=== PATIENT | male | born 1945 | race Caucasian/White ===

== ENCOUNTER 2016-11-28 12:25 | Inpatient (IN) ==
[2016-11-28] MEDS ORDERED: LACTATED RINGERS 1,000 ML IV ONE (13:08)
--- NOTE | 2016-11-28 13:35 | XRay Report ---
CLINICAL INFORMATION: Altered mental status TECHNIQUE: AP portable semierect chest x-ray COMPARISON: 11/14/2016 FINDINGS: No change in right-sided PICC line or left transvenous pacemaker lead Cardiomegaly, unchanged. No evidence for congestive heart failure. No pulmonary congestion. No focal pulmonary parenchymal infiltrate. No evidence for pneumonia. IMPRESSION: No acute abnormality. No interval change since 11/14/2016 Interpreted and Authenticated by: Ab Mcpherson 11/28/16
[2016-11-28 13:39] LABS: Basophils # (Auto) 0 K/mcL (0.0-0.3); Basophils % (Auto) 0.5 % (0.0-2.0); Eosinophils # (Auto) 0.1 K/mcL (0.0-0.7); Eosinophils % (Auto) 1.5 % (0.0-7.0); Granulocytes % (Auto) 74.7 % (38.0-78.0); Lymphocytes # (Auto) 0.9 K/mcL (1.5-4.8); Lymphocytes % (Auto) 8.6 % (15.5-49.0); Mean Cell Volume 97.1 fL (80.0-100.0); Mean Corpuscular HGB Conc 33.3 g/dL (31.0-36.0); Mean Corpuscular Hemoglobin 32.3 pg (26.0-34.0); Monocytes # (Auto) 1.5 K/mcL (0.1-0.9); Monocytes % (Auto) 14.7 % (1.0-12.0); Platelet Count 247 K/mcL (140-440); RBC 3.48 M/mcL (4.50-5.90); Red Cell Distribution Width 14.5 % (11.5-14.5)
[2016-11-28 14:22] LABS: ALT/SGPT 6 U/l (0-40); Albumin 3.3 gm/dL (3.2-5.2); Albumin/Globulin Ratio 0.7 (1.0-2.3); Alkaline Phosphatase 105 U/L (39-117); Blood Urea Nitrogen 36 mg/dl (8-23); Creatine Kinase 15 IU/L (24-195)
[2016-11-28] MEDS ORDERED: cefTRIAXone 1 GM in DEXTROSE 5% IN WATER 50 ML IV ONE (15:07)
[2016-11-28] MEDS ORDERED: VANCOMYCIN 1,000 MG in 0.9 % SODIUM CHLORIDE 250 ML IV ONE ×2 (15:16→16:30)
--- NOTE | 2016-11-28 15:18 | Emergency Department Note ---
General Adult HPI - General Chief complaint: Altered Mental Status Stated complaint: felt "fuzzy" at wound care Time Seen by Provider: 11/28/16 13:08 Source: patient, EMS Mode of arrival: EMS Limitations: no limitations - History of Present Illness HPI Narrative: 71-year-old male who lives at [facility] in [place] came in for diabetic wound care on bilateral feet. While at wound care he was found to have low blood pressure. He is currently being treated with Keflex for UTI for the last several days additionally he had a Marquis catheter placed because he has not been able to urinate well for the last 2 days. He denies fever nausea vomiting diarrhea. His reports some confusion although he is lucid right now and able to give me a reasonable history. - Related Data Home Medications Medication Instructions Recorded Confirmed Acetaminophen [Shake That Ache] 500 mg PO Q6HP PRN 11/14/16 11/28/16 Apixaban [Eliquis] 2.5 mg PO BID 11/14/16 11/28/16 Carvedilol [Coreg] 6.25 mg PO BID 11/14/16 11/28/16 Clopidogrel Bisulfate [Plavix] 75 mg PO DAILY 11/14/16 11/28/16 DULoxetine [Cymbalta] 60 mg PO DAILY 11/14/16 11/28/16 Gabapentin [Neurontin] 100 mg PO TID 11/14/16 11/28/16 Ipratropium/Albuterol [Duoneb] 3 ml NEB ONCE 11/14/16 11/28/16 Levothyroxine [Synthroid] 112 mcg PO DAILY 11/14/16 11/28/16 Lisinopril [Zestril] 5 mg PO DAILY 11/14/16 11/28/16 Metolazone 10 mg PO DAILY 11/14/16 11/28/16 Na Phos,M-B/Na Phos,Di-Ba [Fleet 230 ml RC PRN PRN 11/14/16 11/28/16 Enema Extra] Nitroglycerin 0.3 mg SL PRN PRN 11/14/16 11/28/16 traZODone HCL [Trazodone HCl] 50 mg PO QHS 11/14/16 11/28/16 Allergies Allergy/AdvReac Type Severity Reaction Status Date / Time No Known Drug Allergies Allergy Verified 11/14/16 07:39 Review of Systems All systems ED: reviewed and negative except as stated. Past Medical History - Past Medical History Attestation: Yes: The following information was validated with the patient. Medical history: Reports: atrial fibrillation, CHF, coronary artery disease, diabetes, hypertension, myocardial infarction, thyroid disease, other ( Bilateral foot wounds) Surgical history ED: Reports: hip replacement, knee replacement, orthopedic, other (Carpal tunnel), pacemaker/AICD, vascular surgery - Social History smoking status: Never smoker Physical Exam Normocephalic atraumatic. Conjunctive are clear sclerae nonicteric. No nasal discharge or congestion. Oropharynx is pink and moist. Neck is supple without lymphadenopathy thyromegaly or carotid bruit. Heart is irregularly irregular with congruent radial pulse was 2. Lungs are clear to auscultation bilaterally without wheezes rales rhonchi or respiratory distress. Abdomen soft nontender nondistended. No peritoneal signs or guarding. Bilateral feet are bandagedI did not unwrap them because he just come from wound care and had been examined by the wound care doctor. I reviewed his records from wound care which enumerated 6 wounds-also directly discussed the patient with Dr. Heart wound care surgeon. He is alert awake oriented and able to give me a reasonable history. No dysarthria or ataxia. Marquis in place which shows dark yellow to brown urine - General Limitations: no limitations Course Vital Signs Temperature 96.6 F L 11/28/16 12:25 Pulse Rate 66 11/28/16 12:25 Respiratory Rate 16 11/28/16 12:25 Blood Pressure 124/56 11/28/16 12:25 Pulse Oximetry (%) 100 11/28/16 12:25 Temperature 98.3 F 11/28/16 19:41 Pulse Rate 73 11/28/16 19:41 Respiratory Rate 18 11/28/16 19:41 Blood Pressure 120/42 11/28/16 19:41 Pulse Oximetry (%) 97 11/28/16 19:41 Medical Decision Making - Lab Data Lab results reviewed: Yes I reviewed the patient's lab results. Result diagrams: 11/28/16 13:05 11/28/16 13:05 Lab Results 11/28/16 11/28/16 11/28/16 Range/Units 13:05 13:05 13:05 WBC 10.1 (4.5-11.0) K/mcL RBC 3.48 L (4.50-5.90) M/mcL Hgb 11.3 L (13.5-16.5) g/dL Hct 33.8 L (41.0-55.0) % MCV 97.1 (80.0-100.0) fL MCH 32.3 (26.0-34.0) pg MCHC 33.3 (31.0-36.0) g/dL RDW 14.5 (11.5-14.5) % Plt Count 247 (140-440) K/mcL MPV 9.3 (7.4-10.4) fL Gran % 74.7 (38.0-78.0) % Lymph % (Auto) 8.6 L (15.5-49.0) % Teton % (Auto) 14.7 H (1.0-12.0) % Eos % (Auto) 1.5 (0.0-7.0) % Baso % (Auto) 0.5 (0.0-2.0) % Gran # 7.5 (1.8-8.0) K/mcL Lymph # 0.9 L (1.5-4.8) K/mcL Teton # 1.5 H (0.1-0.9) K/mcL Eos # 0.1 (0.0-0.7) K/mcL Baso # 0 (0.0-0.3) K/mcL ESR 112 H (0-15) mm/hr VBG Lactic Acid (0.5-2.2) mmol/L Sodium 135 (133-145) mmol/L Potassium 4.0 (3.3-5.1) mmol/L Chloride 98 (96-108) mmol/L Carbon Dioxide 24 (22-30) mmol/L Anion Gap 13.0 (8-16) BUN 36 H (8-23) mg/dl Creatinine 1.7 H (0.7-1.2) mg/dl GFR Calculation 39 Glucose 119 H (70-105) mg/dL Calcium 9.2 (8.6-10.4) mg/dl Total Bilirubin 0.8 (0.0-1.0) mg/dL AST 11 (0-37) U/l ALT 6 (0-40) U/l Alkaline Phosphatase 105 (39-117) U/L Total Creatine Kinase 15 L (24-195) IU/L Troponin T (0-0.03) ng/ml C-Reactive Protein (0.0-0.8) mg/dl Total Protein 7.9 (5.9-8.4) gm/dL Albumin 3.3 (3.2-5.2) gm/dL Globulin 4.6 H (2.2-3.7) gm/dL Albumin/Globulin Ratio 0.7 L (1.0-2.3) 11/28/16 11/28/16 11/28/16 Range/Units 13:05 13:13 13:13 WBC (4.5-11.0) K/mcL RBC (4.50-5.90) M/mcL Hgb (13.5-16.5) g/dL Hct (41.0-55.0) % MCV (80.0-100.0) fL MCH (26.0-34.0) pg MCHC (31.0-36.0) g/dL RDW (11.5-14.5) % Plt Count (140-440) K/mcL MPV (7.4-10.4) fL Gran % (38.0-78.0) % Lymph % (Auto) (15.5-49.0) % Teton % (Auto) (1.0-12.0) % Eos % (Auto) (0.0-7.0) % Baso % (Auto) (0.0-2.0) % Gran # (1.8-8.0) K/mcL Lymph # (1.5-4.8) K/mcL Teton # (0.1-0.9) K/mcL Eos # (0.0-0.7) K/mcL Baso # (0.0-0.3) K/mcL ESR (0-15) mm/hr VBG Lactic Acid 1.0 (0.5-2.2) mmol/L Sodium (133-145) mmol/L Potassium (3.3-5.1) mmol/L Chloride (96-108) mmol/L Carbon Dioxide (22-30) mmol/L Anion Gap (8-16) BUN (8-23) mg/dl Creatinine (0.7-1.2) mg/dl GFR Calculation Glucose (70-105) mg/dL Calcium (8.6-10.4) mg/dl Total Bilirubin (0.0-1.0) mg/dL AST (0-37) U/l ALT (0-40) U/l Alkaline Phosphatase (39-117) U/L Total Creatine Kinase (24-195) IU/L Troponin T 0.03 (0-0.03) ng/ml C-Reactive Protein 5.9 H (0.0-0.8) mg/dl Total Protein (5.9-8.4) gm/dL Albumin (3.2-5.2) gm/dL Globulin (2.2-3.7) gm/dL Albumin/Globulin Ratio (1.0-2.3) Urinalysis shows a large amount of blood and moderate leukocytes and specific gravity 1.015 - Radiology Data Radiology results reviewed: Yes I reviewed the patient's radiology results. Chest x-ray is reviewed and without acute cardiopulmonary pathology Renal ultrasound showed some mild cortical atrophy but otherwise without acute abnormality - EKG Data EKG #1 EKG attestation: Yes I reviewed and interpreted this EKG. EKG results narrative: EKG shows a rate of 53 in atrial fibrillation but no sign of ischemia Disposition Clinical Impression: Dehydration, Bradycardia UTI (urinary tract infection) Qualifiers: Urinary tract infection type: acute cystitis Hematuria presence: with hematuria Qualified Code(s): N30.01 - Acute cystitis with hematuria Acute renal failure Qualifiers: Acute renal failure type: unspecified Qualified Code(s): N17.9 - Acute kidney failure, unspecified Wound, open, foot Qualifiers: Encounter type: subsequent encounter Laterality: unspecified laterality Qualified Code(s): S91.309D - Unspecified open wound, unspecified foot, subsequent encounter Summary: Treated with IV fluids and Rocephin for UTI, after cultures done. Blood pressure improved but he remained bradycardic Discussed case with Dr. Lunsford the hospitalist who agreed to accept the patient for admission. Added vancomycin Disposition: [facility] Condition: Fair
[2016-11-28] MEDS ORDERED: ONDANSETRON 4 MG/2 ML VIAL IV PRN (16:33)
[2016-11-28] MEDS ORDERED: POTASSIUM CHLORIDE 20 MEQ PACKET PO PRN (16:33)
[2016-11-28] MEDS ORDERED: ACETAMINOPHEN 325 MG TABLET PO PRN (16:33)
[2016-11-28] MEDS ORDERED: ACETAMINOPHEN 1,000 MG/100 ML BOTTLE IV PRN (16:33)
[2016-11-28] MEDS ORDERED: VANCOMYCIN PER PHARMACY IV ONE (16:33)
[2016-11-28 16:57] LABS: C-Reactive Protein 5.9 mg/dl (0.0-0.8)
[2016-11-28] MEDS ORDERED: VANCOMYCIN PER PHARMACY IV SCH (17:00)
[2016-11-28] MEDS: 0.9 % SODIUM CHLORIDE 1,000 ML IV SCH (17:37)
[2016-11-28] MEDS: cefTRIAXone 2 GM in DEXTROSE 5% IN WATER 50 ML IV SCH (17:41)
[2016-11-28] MEDS ORDERED: VANCOMYCIN 500 MG in 0.9 % SODIUM CHLORIDE 100 ML IV ONE (18:00)
--- NOTE | 2016-11-28 18:29 | Ultrasound Report ---
CLINICAL INFORMATION: Acute renal failure TECHNIQUE: Grayscale and color flow spectral imaging COMPARISON: None. FINDINGS: Technically limited examination. Right kidney measures 10.8 x 5.3 x 6.3 cm. Left kidney measures 11.3 x 5.3 x 6.9 cm. Renal cortex appears thinned bilaterally. No solid or cystic mass. No hydronephrosis. No detectable calculi. IMPRESSION: 1. Probable mild renal cortical atrophy. 2. Otherwise negative renal ultrasound Interpreted and Authenticated by: Ab Mcpherson 11/28/16
[2016-11-28] MEDS: DOCUSATE SODIUM 100 MG CAPSULE PO SCH (20:48)
[2016-11-28] MEDS: 0.9 % SODIUM CHLORIDE 10 ML SYRINGE IV SCH (20:48)
[2016-11-28] MEDS: SENNOSIDES/DOCUSATE SODIUM 1 TAB TABLET PO SCH (20:48)
--- NOTE | 2016-11-28 21:08 | General Surgery Consult Note ---
History of Present Illness Patient information: Note initiated : 11/28/16 at 8:52 pm Service Date, if different from initiated Date: [] Patient: Steve Herrera 71 y/o M admitted on 11/28/16 for felt "fuzzy" at wound care. Chief Complaint: [] Consult date: 11/28/16 (Patient admitted for Passing out. Has chronic wounds of both feet.) Requesting physician: Matt Zavala History of present illness: 71/M Known h/o CAD, [place] x2, last episode 11/2015, AF with implanted defibrillator , PAD with stents both LE, IDDM, Renal insufficiency, UTI Marquis catheter draining dark urine with hematuria . Patient was admitted from ER to Med Surg floor. Earlier today, before admission he was seen at the wound care center for routine f/u for his bilateral feet and ankle skin and subcutaneous wounds. These were cleaned,debrided and dressed as per protocol. Patient felt lightheaded and passed out whilst trying to sit up from supine position. This was a witnessed event. This was NOT a seizure. Briefly, he did NOT have a pulse and heart sounds were NOT audible. This returned to baseline spontaneously with in a very short time. Patient was aware of being in the wound clinic and with his family members in attendance. Paramedics were called, plywood patcher showed AF with bradycardia.Patient has an implanted defibrillator. He was transferred to ER. We went out to ER and spoke with Dr. Cao, ER MD. Patient admitted to the hospital for observation and treatment. I saw him a short time ago on the floor. He is NOW back to his base line.Chronic AF, hemodynamically stable. AAOx3. Lucid and had a normal conversation. His foot and ankle dressings are dry and clean. There is NO NEED TO CHANGE THEM at this time. They can be left alone with elevation of legs and off loading of heels over pillows. Next dressing change 12/02 or 12/03/2016. I spoke about this at length with , Hospitalist Physician and nursing staff on floor. Medications and Allergies Home Medications Medication Instructions Recorded Confirmed Type Acetaminophen [Shake That Ache] 500 mg PO Q6HP PRN 11/14/16 11/28/16 History Apixaban [Eliquis] 2.5 mg PO BID 11/14/16 11/28/16 History Carvedilol [Coreg] 6.25 mg PO BID 11/14/16 11/28/16 History Clopidogrel Bisulfate [Plavix] 75 mg PO DAILY 11/14/16 11/28/16 History DULoxetine [Cymbalta] 60 mg PO DAILY 11/14/16 11/28/16 History Gabapentin [Neurontin] 100 mg PO TID 11/14/16 11/28/16 History Ipratropium/Albuterol [Duoneb] 3 ml NEB ONCE 11/14/16 11/28/16 History Levothyroxine [Synthroid] 112 mcg PO DAILY 11/14/16 11/28/16 History Lisinopril [Zestril] 5 mg PO DAILY 11/14/16 11/28/16 History Metolazone 10 mg PO DAILY 11/14/16 11/28/16 History Na Phos,M-B/Na Phos,Di-Ba [Fleet 230 ml RC PRN PRN 11/14/16 11/28/16 History Enema Extra] Nitroglycerin 0.3 mg SL PRN PRN 11/14/16 11/28/16 History traZODone HCL [Trazodone HCl] 50 mg PO QHS 11/14/16 11/28/16 History Allergies Allergy/AdvReac Type Severity Reaction Status Date / Time No Known Drug Allergies Allergy Verified 11/14/16 07:39 Exam Temp Pulse Resp BP Pulse Ox 98.3 F 73 18 120/42 97 11/28/16 19:41 11/28/16 19:41 11/28/16 19:41 11/28/16 19:41 11/28/16 19:41 - General physical appearance well developed, well nourished, no distress, no pain, obese - Eyes PERRL, normal ocular movement - ENT normal pinna, normal nares, normal mucosa, no congestion - Head Head exam IM: Present: atraumatic, normal inspection, normocephalic - Neck no masses, no bruits, trachea midline, no lymphadectomy, no venous distension - Cardiovascular Cardiovascular exam IM: Present: irregular rhythm - Respiratory normal expansion, clear to auscultation - Abdomen Abdomen: Present: soft, non tender, bowel sounds - Genitourinary Present: normal penis with no external lesions, other (Marquis catheter draining dark urine, Microscopic hematuria. Chronic. On antibiotics) - Integumentary Present: other (Grade 1-2 ulcers both feet over toes and around ankles. NO cellulitis, No crepitus, NO drainage and NO odor) - Neurologic Present: normal coordination, normal sensation, other (Diabetic neuropathy, NON focal and NON lateralizing neurological exam. Moves all 4 extremities. ) - Musculoskeletal Present: other (NON Ambulatory, but moves all 4 limbs. ) - Psychiatric Present: oriented to time, oriented to person, oriented to place, speech is normal, memory intact Results - Labs 11/28/16 13:05 11/28/16 13:05 All other labs normal. Assessment and Plan (1) Wound, open, foot NO intervention needed from wound care point of view at this time. Keep dressings clean,dry and intact. Further medical management and discharge or transfer per Hospitalist service. Next dressing change as per schedule 12/02 or 12/03/2016. Status: Chronic Priority: Low Qualifiers: Encounter type: subsequent encounter Laterality: unspecified laterality Qualified Code(s): S91.309D - Unspecified open wound, unspecified foot, subsequent encounter
[2016-11-29] MEDS: 0.9 % SODIUM CHLORIDE 10 ML SYRINGE IV SCH ×3 (05:16→20:57)
[2016-11-29 05:44] LABS: Mean Cell Volume 96.2 fL (80.0-100.0); Mean Corpuscular HGB Conc 33.9 g/dL (31.0-36.0); Mean Corpuscular Hemoglobin 32.6 pg (26.0-34.0); Platelet Count 192 K/mcL (140-440); RBC 2.97 M/mcL (4.50-5.90); Red Cell Distribution Width 14.5 % (11.5-14.5)
[2016-11-29 06:07] LABS: ALT/SGPT < 5 U/l (0-40); Albumin 2.7 gm/dL (3.2-5.2); Albumin/Globulin Ratio 0.7 (1.0-2.3); Alkaline Phosphatase 92 U/L (39-117); Bilirubin,Direct < 0.2 mg/dL (0.0-0.3); Blood Urea Nitrogen 37 mg/dl (8-23); Gamma Glutamyl Transpeptidase 69 U/L (8-61); Magnesium 1.4 mg/dL (1.6-2.5); Uric Acid 11.5 mg/dL (2.5-8.0)
[2016-11-29 06:23] LABS: Eosinophils % (Manual) 3 % (0-7); Lymphocytes % 14 % (15-49); Monocytes % (Manual) 14 % (1-12); Platelet Estimate NORMAL (NORMAL); RBC Morphology NORMAL (NORMAL); Segmented Neutrophils % 69 % (38-78)
[2016-11-29] MEDS ORDERED: IPRATROPIUM/ALBUTEROL 3 ML AMPUL.NEB NEB PRN (07:48)
[2016-11-29] MEDS ORDERED: ACETAMINOPHEN 500 MG TABLET PO PRN (07:48)
[2016-11-29] MEDS ORDERED: BISACODYL 10 MG SUPP.RECT PR PRN (07:48)
[2016-11-29] MEDS ORDERED: NITROGLYCERIN 0.4 MG TAB.SUBL SL PRN (07:51)
[2016-11-29] MEDS ORDERED: METOLAZONE 2.5 MG TABLET PO PRN (08:30)
--- NOTE | 2016-11-29 08:44 | History and Physical Report ---
DATE OF ADMISSION: 11/28/2016 REASON FOR ADMISSION: Syncopal event. HISTORY OF CHIEF COMPLAINT: This is a 71-year-old who is currently a resident of the [place] [facility]. He has a known history of ischemic cardiomyopathy with EF of 35% with recent hospitalization at [facility] for V-tach. The patient also suffers from diabetes and lower extremity wounds which were managed by Wound Care, Dr. Heart. Today at the wound clinic the patient had a syncopal episode. He was down on the ground for 2 minutes. However, no witness of seizures were noted. EMS was called and after initial resuscitation the patient was brought into [facility] ER. There was no CPR performed. His blood pressures were low in the 80s. He was started on crystalloids. The patient was bradycardic in mid 50s. Further workup revealed acute renal failure with a creatinine of 1.7 and BUN 36. Negative troponins. Hospitalist Service was consulted. At the time of examination, the patient is alert and oriented. He denies any active distress. He does not recollect events prior to fall, but remembers waking up at emergency room. He endorses to lightheadedness, but denies incontinence, diarrhea, fever, chills, abdominal pain, nausea, vomiting. REVIEW OF SYSTEMS: Ten-point review of system was performed and negative except the ones discussed above. PAST MEDICAL HISTORY: 1. Diabetes mellitus type 2. 2. Neuropathy. 3. Chronic lower extremity wounds. 4. Hypertension. 5. Coronary artery disease with ischemic cardiomyopathy, EF 35%. 6. Defibrillator placement. 7. Hyperlipidemia. 8. History of ventricular tachycardia. 9. Congestive heart failure. 10. Dysmetabolic syndrome. 11. Chronic lower extremity lymphedema. CURRENT MEDICATIONS: Please see medical records. ALLERGIES: Please see medical records. SOCIAL HISTORY: The patient is and lives in the [place]. He quit smoking in 1987. No history of alcoholism. FAMILY HISTORY: None significant. PHYSICAL EXAMINATION: GENERAL: The patient is alert and oriented. BMI 34. Height 5 feet 11 inches. VITAL SIGNS: Blood pressure 139/64, respiratory rate 18, temperature 98.6, pulse 58, sats 94% on room air. HEENT: Pupils symmetric. Oral cavity is dry. No ear or nose discharge. Head is normocephalic and atraumatic. NECK: No lymphadenopathy. HEART: S1, S2, irregular rhythm. CHEST: Anterior chest defibrillator. Diminished breath sounds. Late inspiratory crackles posterior bases. ABDOMEN: Soft and nontender. LOWER EXTREMITIES: Significant for bilateral lower extremity wounds covered in dressing along with lymphedema, stasis changes. No joint swelling or erythema. No cyanosis. SKIN: No suspicious lesions. PSYCHIATRIC: Alert and cooperative. No anxiety. NEURO: Nonfocal, moving all four extremities. LABS AND IMAGING: White count 10.1, hemoglobin 11.3, and platelets 247. ESR 112. Lactic acid 1.0. Sodium 135, potassium 4, creatinine 1.7, BUN 36. CRP 5.9. Procalcitonin 0.21. Troponin 0.3. Renal ultrasound: Cortical atrophy, otherwise unremarkable. X-ray chest: No acute abnormality. ASSESSMENT AND PLAN: A 71-year-old admitted with syncopal episode along with acute renal failure. 1. Syncopal episode, likely related to bradycardia, volume depletion. Continue crystalloids. Continue close monitoring in telemetry. Reviewed echo from [facility] from 07/2016 with EF 35%. The patient has an implanted defibrillator. At this time we will continue monitoring. 2. Acute renal failure secondary to volume depletion. Continue crystalloids. 3. LE wounds. managed by Dr heart. 4. Other prior multiple medical issues will be managed on home medication, including: a. Congestive heart failure. Continue spironolactone/TAMMIE inhibitor/anticoagulation/Plavix. b. Hypothyroidism on thyroxine. c. Anxiety disorder on duloxetine. d. History of reactive airway disease. Continue ipratropium. e. Neuropathy on gabapentin. f. Anticoagulation on apixaban. PLAN FOR TODAY: 1. Admit as inpatient telemetry. 2. Crystalloids. 3. Preexisting medical condition management as above. 4. Physical therapy and gait and safety evaluation. AA:sumeet Job ID: [id number] Doc ID: [id number] Matt PEDERSEN
[2016-11-29] MEDS: DOCUSATE SODIUM 100 MG CAPSULE PO SCH ×2 (08:53→20:56)
[2016-11-29] MEDS: MULTIVIT,THER IRON,CA,FA & MIN 1 TABLET PO SCH (08:53)
[2016-11-29] MEDS: TORSEMIDE 10 MG TABLET PO SCH (08:53)
[2016-11-29] MEDS: MAGNESIUM SULFATE 2 GM/50 ML BAG IV PRN (08:54)
[2016-11-29] MEDS: cefTRIAXone 2 GM in DEXTROSE 5% IN WATER 50 ML IV SCH (08:54)
[2016-11-29] MEDS ORDERED: SPIRONOLACTONE 25 MG TABLET PO SCH (09:00)
--- NOTE | 2016-11-29 09:35 | General Surgery Progress Note ---
Subjective Patient reports: no new complaints, other (Uneventful night. Dressings both feet are CDI. ) Narrative: Note initiated : 11/29/16 at 9:30 am Service Date, if different from initiated Date: [] Patient: Steve Herrera 71 y/o M admitted on 11/28/16 for felt "fuzzy" at wound care. Chief Complaint: [] Objective Temp Pulse Resp BP Pulse Ox 99 F 77 16 135/44 93 11/29/16 06:51 11/29/16 04:00 11/29/16 06:51 11/29/16 06:51 11/29/16 06:51 AVSS. No interval changes in clinical examination, Dressings both feet, ankles and legs are clean and dry. - Additional Data Intake & Output - Last 24 hours: Intake & Output 11/27/16 11/28/16 11/29/16 11/30/16 05:59 05:59 05:59 05:59 Intake Total / 2009 240 / 240 Output Total 1075 / 1075 Balance -115 / 935 240 / 240 Weight 248 lb 4.8 oz - Labs 11/29/16 04:50 11/29/16 04:50 Diabetes panel 11/29/16 Range/Units 04:50 Sodium 138 (133-145) mmol/L Potassium 3.9 (3.3-5.1) mmol/L Chloride 101 (96-108) mmol/L Carbon Dioxide 25 (22-30) mmol/L BUN 37 H (8-23) mg/dl Creatinine 1.4 H (0.7-1.2) mg/dl Glucose 101 (70-105) mg/dL Calcium 8.5 L (8.6-10.4) mg/dl AST 10 (0-37) U/l ALT < 5 (0-40) U/l Alkaline Phosphatase 92 (39-117) U/L Total Protein 6.8 (5.9-8.4) gm/dL Albumin 2.7 L (3.2-5.2) gm/dL Triglycerides 61 (<150) mg/dl Calcium panel 11/29/16 Range/Units 04:50 Calcium 8.5 L (8.6-10.4) mg/dl Phosphorus 4.1 (2.7-4.5) mg/dL Albumin 2.7 L (3.2-5.2) gm/dL Pituitary panel 11/29/16 Range/Units 04:50 Sodium 138 (133-145) mmol/L Potassium 3.9 (3.3-5.1) mmol/L Chloride 101 (96-108) mmol/L Carbon Dioxide 25 (22-30) mmol/L BUN 37 H (8-23) mg/dl Creatinine 1.4 H (0.7-1.2) mg/dl Glucose 101 (70-105) mg/dL Calcium 8.5 L (8.6-10.4) mg/dl Adrenal panel 11/29/16 Range/Units 04:50 Sodium 138 (133-145) mmol/L Potassium 3.9 (3.3-5.1) mmol/L Chloride 101 (96-108) mmol/L Carbon Dioxide 25 (22-30) mmol/L BUN 37 H (8-23) mg/dl Creatinine 1.4 H (0.7-1.2) mg/dl Glucose 101 (70-105) mg/dL Calcium 8.5 L (8.6-10.4) mg/dl Total Bilirubin 0.6 (0.0-1.0) mg/dL AST 10 (0-37) U/l ALT < 5 (0-40) U/l Alkaline Phosphatase 92 (39-117) U/L Total Protein 6.8 (5.9-8.4) gm/dL Albumin 2.7 L (3.2-5.2) gm/dL Assessment and Plan (1) Wound, open, foot Status: Chronic Current Visit: Yes - Narrative A/P Narrative: Patient seen in the presence of his son. Progress reviewed with nurseJayde. Assessment. Stable and Progressing well from wound care point of view. Labs. WBC Normal Creatinine 1.4 Plan Nothing to add at this time from wound care point of view. Patient needs to be scheduled to see Dr. Sorto. Please schedule a follow up appointment to wound care center at time of discharge. - Time Spent With Patient Total time spent is greater than 50% in coordination of care (as documented) at patient's floor/unit and/or counseling patient: less than 15 minutes
[2016-11-29 10:14] LABS: Appearance,Urine CLOUDY; Bacteria,Urine FEW /hpf (0); Bilirubin,Urine NEG (NEG); Color,Urine YELLOW; Glucose,Urine (UA) NEGATIVE (NEG); Leukocyte Esterase,Urine 500 /uL (NEG); Mucus,Urine FEW /hpf (0); Nitrate,Urine NEG (NEG); Protein,Urine 100 mg/dL (NEG); Specific Gravity,Urine 1.014 (1.000-1.035); Urine Amorphous Crystals FEW /hpf (0); Urine Blood >=1.0 mg/dL (<0.03); Urine Hyaline Cast 14 /lpf (0-2); Urine RBC > 182 /hpf (0-1); Urine Squamous Epithelial Cell < 1 /hpf (0-4); Urine Transitional Epi Cells < 1 /hpf (0-2); Urine WBC 119 /hpf (0-4); Urobilinogen,Urine NEG (NEG)
--- NOTE | 2016-11-29 10:45 | Internal Med Progress Note ---
Medical - PN: Subj Patient information: Note initiated : 11/29/16 at 10:42 am Service Date, if different from initiated Date: [] Patient: Steve Herrera 71 y/o M admitted on 11/28/16 for Syncopal Episode with Acute Renal Failure. Chief Complaint: [] Interval history: [id number] [facility] resident admitted after experiencing syncopal episode at wound care clinic. History of ischemic cardiomyopathy with 35% EF and recurrent V. tach currently on defibrillator. Admitted to telemetry. Orthostatic stable. Acute renal failure plan 1.7. Started on crystalloids. Lower extremity nonhealing wound secondary to PVD with cellulitis on antibiotic coverage including vancomycin/Rocephin. case discussed with Dr. Heart. Patient would not need dressing until Friday. 11/29- improving creatinine down to 1.4. Patient feels a lot better. No overnight events except for intermittent bradycardia. Asymptomatic. Tolerating physical therapy/diet. patient is mostly wheelchair bound at baseline and has poor functional status. Anticipate discharge to be a home in 24 hours with outpatient vancomycin/Rocephin for one week for lower extremity cellulitis along with continued wound care instructions/follow-ups. - Constitutional Vitals: Vital Signs Temp Pulse Resp BP Pulse Ox 99 F 77 16 135/44 93 11/29/16 06:51 11/29/16 04:00 11/29/16 06:51 11/29/16 06:51 11/29/16 06:51 Period Temp Pulse Resp BP Sys/Andres Pulse Ox Last 24 Hr 98.3 F-99.7 F 70-77 -18 103-135/36-44 93-97 Intake and Output 11/28/16 11/29/16 11/29/16 21:59 05:59 13:59 Intake Total 960 / 960 240 / 240 Output Total 1075 / 1075 Balance -115 / -115 240 / 240 Weight 248 lb 4.8 oz Intake & Output: Intake & Output 11/28/16 11/29/16 11/29/16 21:59 05:59 13:59 Intake Total 960 / 960 240 / 240 Output Total 1075 / 1075 Balance -115 / -115 240 / 240 Weight 248 lb 4.8 oz Intake: Oral 960 / 960 240 / 240 Output: Urine Catheter Amount 1075 / 1075 Other: Meal Breakfast Percent of Meal Consumed 100% General appearance: cooperative, no acute distress Exam: alert oriented nonlabored breathing DefibrillatorLeft anterior chest diminished breath sounds bases Lower extremity covered in sterile dressing Medical - PN: Obj Da - Labs CBC & Chem 7: 11/29/16 04:50 11/29/16 04:50 Labs: Abnormal Lab Results 11/29/16 11/29/16 04:50 04:50 RBC 2.97 L Hgb 9.7 L Hct 28.6 L Lymphocytes % 14 L Monocytes % (Manual) 14 H BUN 37 H Creatinine 1.4 H Uric Acid 11.5 H Calcium 8.5 L Magnesium 1.4 L GGT 69 H Albumin 2.7 L Globulin 4.1 H Albumin/Globulin Ratio 0.7 L Meds: Medications Acetaminophen (Tylenol) 650 mg PO Q4-6HP PRN PRN Reason: PAIN/FEVER > 101 Last Admin: 11/29/16 09:09 Dose: 650 mg Albuterol/Ipratropium (Duoneb) 3 ml NEB Q4HP PRN PRN Reason: bronchitis Bisacodyl (Dulcolax) 10 mg NH PRN PRN PRN Reason: Constipation Docusate Sodium (Colace) 100 mg PO BID [facility] [place] Last Admin: 11/29/16 08:53 Dose: 100 mg Gabapentin (Neurontin) 100 mg PO HS [facility] [place] Magnesium Sulfate (Magnesium Sulfate) 2 gm in 50 mls @ 50 mls/hr IV UD PRN PRN Reason: MG = or < 1.7 Last Admin: 11/29/16 08:54 Dose: 50 mls/hr Sodium Chloride (Sodium Chloride 0.9%) 1,000 mls @ 50 mls/hr IV .Q20H [facility] [place] Stop: 12/01/16 04:32 Last Admin: 11/28/16 17:37 Dose: 50 mls/hr Acetaminophen (Ofirmev) 1,000 mg in 100 mls @ 200 mls/hr IV Q6HP PRN PRN Reason: PAIN/FEVER > 101 Ceftriaxone Sodium 2 gm/ (Dextrose) 50 mls @ 100 mls/hr IV Q24H [facility] [place] Last Admin: 11/29/16 08:54 Dose: 100 mls/hr Vancomycin HCl 1,500 mg/ (Sodium Chloride) 500 mls @ 333.3 mls/hr IV Q24H [facility] [place] Iron Carb/Multivit/[place]/Folic Acid (Multivitamin W/Minerals) 1 tab PO DAILY [facility] [place] Last Admin: 11/29/16 08:53 Dose: 1 tab Metolazone (Zaroxolyn) 5 mg PO DAILY@0830 PRN PRN Reason: WEIGHT GAIN Nitroglycerin (Nitrostat) 0.4 mg SL Q5M PRN PRN Reason: Angina Apixaban [Eliquis] 2 (.5 Mg Tab) 2.5 mg PO HS [facility] [place] Ondansetron HCl (Zofran) 4 mg IV Q4-6HP PRN PRN Reason: Nausea And Vomiting Pantoprazole Sodium (Protonix) 40 mg PO HS [facility] [place] Potassium Chloride (Klor-Con) 40 meq PO DAILYP PRN PRN Reason: K+ < 3.5 Senna/Docusate Sodium (Senna Plus Tablet) 1 tab PO HS [facility] [place] Last Admin: 11/28/16 20:48 Dose: 1 tab Sodium Chloride (Saline Flush) 10 ml IV Q8 [facility] [place] Last Admin: 11/29/16 05:16 Dose: 10 ml Spironolactone (Aldactone) 12.5 mg PO DAILY [facility] [place] Last Admin: 11/29/16 08:53 Dose: 12.5 mg Torsemide (Demadex) 20 mg PO DAILY [facility] [place] Last Admin: 11/29/16 08:53 Dose: 20 mg Vancomycin HCl (Vancomycin Per Pharmacy) 1 order IV UD [facility] Medical - PN: A/P - Time Spent With Patient Total time spent is greater than 50% in coordination of care (as documented) at patient's floor/unit and/or counseling patient: 25 - 35 minutes - Narrative A/P Narrative: ASSESSMENT * Syncopal episode-on telemetry monitoring. Likely underlying V. tach. patient has AICD. No further events on telemetry. Patient feeling a lot better. Asymptomatic regarding dizziness * Acute renal failure likely secondary to volume depletion- creatinine improved from 1.7-1.4. Continue monitoring. Continue renal diet * Non healing lower extremity wound/cellulitis secondary to peripheral vascular disease-managed by Dr. Heart. Continue antibiotics for 7 days. Possible discharge in 24 hours. Case discussed with wound care physician and recommended dressing change on Friday. * history of peripheral vascular disease-Patient is to follow up with interventional radiology Dr. Sorto as outpatient. Continue Plavix * NYHA class III systolic heart failure EF 35%-on Coreg/Plavix/lisinopril/ spironolactone/torsemide * Neuropathy on gabapentin * anticoagulation On Apixiban plan * Possible discharge in 24 hours with outpatient antibiotics * outpatient wound care follow-up * Outpatient intervention radiology will follow-up with Dr. Sorto * Pre-existing medical condition management as above Medical - PN: Qual - VTE Deep Vein Thrombosis/Pulmonary Embolism Present on Admission: No
[2016-11-29] MEDS: 0.9 % SODIUM CHLORIDE 1,000 ML IV SCH ×2 (13:03→16:15)
[2016-11-29] MEDS ORDERED: VANCOMYCIN 1,500 MG in 0.9 % SODIUM CHLORIDE 500 ML IV SCH (14:00)
--- NOTE | 2016-11-29 16:22 | Discharge Summary ---
Medical - DS: Prov Patient information: Note initiated : 11/29/16 at 4:20 pm Service Date, if different from initiated Date: [] Patient: Steve Herrera 71 y/o M admitted on 11/28/16 for Syncopal Episode with Acute Renal Failure. Chief Complaint: [] Date of admission: 11/28/16 16:36 Primary care physician: Marcelo Garcia Medical - DS: Meds - Discharge Medications Active and Home Medications: Home Medications Apixaban [Eliquis] 2.5 mg PO HS 11/14/16 [History Confirmed 11/29/16 Last Taken 11/28/16 09:00 2.5 MG.] Carvedilol [Coreg] 6.25 mg PO BID 11/14/16 [History Confirmed 11/28/16 Last Taken 11/28/16 09:00 6.25 MG.] Clopidogrel Bisulfate [Plavix] 75 mg PO DAILY 11/14/16 [History Confirmed Last Taken 11/28/16 09:00 75 MG.] DULoxetine [Cymbalta] 60 mg PO DAILY 11/14/16 [History Confirmed 11/28/16 Last Taken 11/28/16 09:00 60 MG.] Gabapentin [Neurontin] 100 mg PO HS 11/14/16 [History Confirmed 11/29/16 Last Taken 11/28/16 09:00] Ipratropium/Albuterol [Duoneb] 3 ml NEB Q4 PRN 11/14/16 [History Confirmed 11/29 Last Taken Unknown] Levothyroxine [Synthroid] 112 mcg PO DAILY 11/14/16 [History Confirmed 11/28/16 Last Taken 11/28/16 07:30 112 MCG] Lisinopril [Zestril] 5 mg PO DAILY 11/14/16 [History Confirmed 11/28/16 Last Taken 11/28/16 09:00 5 MG.] Metolazone 5 mg PO DAILYP PRN 11/14/16 [History Confirmed 11/29/16 Last Taken 09:00 10 mg.] Na Phos,M-B/Na Phos,Di-Ba [Fleet Enema Extra] 230 ml RC PRN PRN 11/14/16 [ History Confirmed 11/28/16 Last Taken Unknown] Nitroglycerin 0.3 mg SL PRN PRN 11/14/16 [History Confirmed 11/28/16 Last Taken 04/24/16 0.3 mg.] traZODone HCL [Trazodone HCl] 50 mg PO QHS 11/14/16 [History Confirmed 11/28/16 Last Taken 11/27/16 21:00 50 mg.] 0.9 % Sodium Chloride [Saline Flush] 10 ml IV Q8 11/29/16 [History Confirmed Last Taken Unknown] Acetaminophen [Tylenol Extra Strength] 500 mg PO Q6HP PRN 11/29/16 [History Confirmed 11/29/16 Last Taken Unknown] Bacillus Coagulans [Probiotic] 1 tab PO BID 11/29/16 [History Confirmed Last Taken Unknown] Bisacodyl [Dulcolax] 10 mg MN PRN PRN 11/29/16 [History Confirmed 11/29/16 Last Taken Unknown] Cephalexin [Keflex] 500 mg PO TID 11/29/16 [History Confirmed 11/29/16 Last Taken Unknown] Container,Empty [Nasal [place] Bottle] 1 puff INTRANASAL Q2HP PRN 11/29/16 [ History Confirmed 11/29/16 Last Taken Unknown] Heparin Sodium,Porcine/Pf [Heparin Lock Flush 10 Units/ml] 2.5 ml IV Q8 [History Confirmed 11/29/16 Last Taken Unknown] Magnesium Hydroxide [Milk of Magnesia] 30 ml PO DAILYP PRN 11/29/16 [History Confirmed 11/29/16 Last Taken Unknown] Pantoprazole [Protonix] 40 mg PO HS 11/29/16 [History Confirmed 11/29/16 Last Taken Unknown] Spironolactone [Aldactone] 12.5 mg PO DAILY 11/29/16 [History Confirmed Last Taken Unknown] Spironolactone [Aldactone] 25 mg PO DAILY 11/29/16 [History Confirmed 11/29/16 Last Taken Unknown] Torsemide [Demadex] 20 mg PO DAILY 11/29/16 [History Confirmed 11/29/16 Last Taken Unknown] Medical - DS: Hosp Hospital course: Mr. Herrera is a 71 year old male - Time Spent with Patient Total time spent providing and/or coordinating discharge services: Medical - DS: Exam - Constitutional Vitals: Vital Signs Temp Pulse Resp BP Pulse Ox 11/29/16 16:00 97.6 F 55 L 18 126/50 98 11/29/16 12:00 97.6 F 58 L 18 119/45 95 11/29/16 06:51 99 F 16 135/44 93 11/29/16 04:00 99.7 F H 77 16 119/40 93 11/29/16 00:00 99.0 F 70 16 103/36 93 11/28/16 19:41 98.3 F 73 18 120/42 97 Intake and Output 11/29/16 11/29/16 11/29/16 05:59 13:59 21:59 Intake Total 960 / 960 1340 / 1340 500 / 500 Output Total 1075 / 1075 1425 / 1425 50 / 50 Balance -115 / -115 -85 / -85 450 / 450 Intake: IV 1100 / 1100 Sodium Chloride 0.9% 1, 1000 / 1000 000 ml @ 50 mls/hr IV . Q20H [facility] Rx#:[id number] Rocephin 2 gm In Dextrose 50 / 50 5% in Water 50 ml @ 100 mls/hr IV Q24H [facility] Rx#: [id number] Oral 960 / 960 240 / 240 500 / 500 Output: Urine Catheter Amount 1075 / 1075 525 / 525 50 / 50 Void Amount 900 / 900 Other: Meal Breakfast Percent of Meal Consumed 100% Weight 248 lb 4.8 oz Patient Weight 11/30/16 05:59 Weight 248 lb 4.8 oz Medical - DS: Data Labs on day of discharge: Labs from last 24 hours 11/29/16 11/29/16 11/29/16 04:50 04:50 04:00 WBC 8.8 RBC 2.97 L Hgb 9.7 L Hct 28.6 L MCV 96.2 MCH 32.6 MCHC 33.9 RDW 14.5 Plt Count 192 MPV 9.0 Total Counted 100 Seg Neutrophils % 69 Band Neutrophils % Not Reportable Lymphocytes % 14 L Monocytes % (Manual) 14 H Eosinophils % (Manual) 3 Platelet Estimate Normal RBC Morphology Normal Sodium 138 Potassium 3.9 Chloride 101 Carbon Dioxide 25 Anion Gap 12.0 BUN 37 H Creatinine 1.4 H GFR Calculation 50 Glucose 101 Uric Acid 11.5 H Calcium 8.5 L Phosphorus 4.1 Magnesium 1.4 L Total Bilirubin 0.6 Direct Bilirubin < 0.2 GGT 69 H AST 10 ALT < 5 Alkaline Phosphatase 92 Lactate Dehydrogenase 126 Total Protein 6.8 Albumin 2.7 L Globulin 4.1 H Albumin/Globulin Ratio 0.7 L Triglycerides 61 Procalcitonin 11/28/16 17:30 WBC RBC Hgb Hct MCV MCH MCHC RDW Plt Count MPV Total Counted Seg Neutrophils % Band Neutrophils % Lymphocytes % Monocytes % (Manual) Eosinophils % (Manual) Platelet Estimate RBC Morphology Sodium Potassium Chloride Carbon Dioxide Anion Gap BUN Creatinine GFR Calculation Glucose Uric Acid Calcium Phosphorus Magnesium Total Bilirubin Direct Bilirubin GGT AST ALT Alkaline Phosphatase Lactate Dehydrogenase Total Protein Albumin Globulin Albumin/Globulin Ratio Triglycerides Procalcitonin 0.21 Medical - DS: A/P - Follow up Plan Follow up with: Ozzy Heart MD [Physician] - 12/05/16 2:20 pm (Continue with previously scheduled appointment at [facility] with Daja Calderon. Dr. martínez Heart is out of the office this week.) Marcelo Garcia MD [Primary Care Provider] - Prognosis: Fair Medical - DS: Qual - VTE Deep Vein Thrombosis/Pulmonary Embolism Present on Admission: No
[2016-11-29] MEDS: SENNOSIDES/DOCUSATE SODIUM 1 TAB TABLET PO SCH (20:56)
[2016-11-29] MEDS ORDERED: PANTOPRAZOLE 40 MG PACKET PO SCH (21:00)
[2016-11-29] MEDS ORDERED: GABAPENTIN 100 MG CAPSULE PO SCH (21:00)
[2016-11-29] MEDS ORDERED: traZODone HCL 50 MG TABLET PO SCH (21:00)
[2016-11-30] MEDS: 0.9 % SODIUM CHLORIDE 10 ML SYRINGE IV SCH (05:30)
[2016-11-30 06:04] LABS: Mean Corpuscular Hemoglobin 32.9 pg (26.0-34.0); Platelet Count 180 K/mcL (140-440); RBC 3.09 M/mcL (4.50-5.90); Red Cell Distribution Width 13.8 % (11.5-14.5)
[2016-11-30 06:37] LABS: ALT/SGPT 7 U/l (0-40); Albumin 2.8 gm/dL (3.2-5.2); Albumin/Globulin Ratio 0.7 (1.0-2.3); Alkaline Phosphatase 106 U/L (39-117); Bilirubin,Direct < 0.2 mg/dL (0.0-0.3); Blood Urea Nitrogen 31 mg/dl (8-23); Gamma Glutamyl Transpeptidase 95 U/L (8-61); Magnesium 1.7 mg/dL (1.6-2.5); Uric Acid 9.9 mg/dL (2.5-8.0)
[2016-11-30 06:45] LABS: Eosinophils % (Manual) 12 % (0-7); Lymphocytes % 7 % (15-49); Monocytes % (Manual) 14 % (1-12); Platelet Estimate NORMAL (NORMAL); RBC Morphology NORMAL (NORMAL); Segmented Neutrophils % 67 % (38-78)
[2016-11-30] MEDS ORDERED: LEVOTHYROXINE 125 MCG TABLET PO SCH (07:30)
--- NOTE | 2016-11-30 08:27 | XRay Report ---
CLINICAL INFORMATION: Syncope. Renal failure. TECHNIQUE: AP portable semierect chest x-ray COMPARISON: Previous examinations dated 11/28/2016 and 11/14/2016 FINDINGS: No change in positions of right-sided PICC line in left central venous catheter. Focal infiltrate at the right costophrenic angle and probable small effusion. Findings are new or worse since previous examination dated consistent with pneumonia. Follow-up radiograph recommended. Left lung remains clear. There is cardiomegaly. No pulmonary edema IMPRESSION: 1. Focal infiltrate at the right costophrenic angle. Findings consistent with pneumonia 2. Probable small right pleural effusion 3. Cardiomegaly without congestive heart failure Interpreted and Authenticated by: Ab Mcpherson 11/30/16
[2016-11-30] MEDS: MAGNESIUM SULFATE 2 GM/50 ML BAG IV PRN (08:42)
[2016-11-30] MEDS: TORSEMIDE 10 MG TABLET PO SCH (08:52)
[2016-11-30] MEDS: DOCUSATE SODIUM 100 MG CAPSULE PO SCH (08:52)
[2016-11-30] MEDS: MULTIVIT,THER IRON,CA,FA & MIN 1 TABLET PO SCH (08:52)
[2016-11-30] MEDS: 0.9 % SODIUM CHLORIDE 1,000 ML IV SCH (08:56)
[2016-11-30] MEDS ORDERED: DULoxetine 30 MG CAPSULE PO SCH (09:00)
[2016-11-30] MEDS ORDERED: LISINOPRIL 5 MG TABLET PO SCH (09:00)
[2016-11-30] MEDS ORDERED: SPIRONOLACTONE 25 MG TABLET PO SCH (09:00)
[2016-11-30] MEDS: cefTRIAXone 2 GM in DEXTROSE 5% IN WATER 50 ML IV SCH (10:26)
--- NOTE | 2016-11-30 11:51 | Discharge Summary ---
Medical - DS: Prov Patient information: Note initiated : 11/30/16 at 11:42 am Service Date, if different from initiated Date: [] Patient: Steve Herrera 71 y/o M admitted on 11/28/16 for Syncopal Episode with Acute Renal Failure. Chief Complaint: [] Date of admission: 11/28/16 16:36 Discharge date: 11/30/16 Primary care physician: Marcelo Garcia, [phone] patient [place] followed by the [place] [facility] [place] [facility]. Admitting clinician: Matt Zavala Attending physician on discharge: [facility] - DS: Meds - Discharge Medications Active and Home Medications: Home Medications Apixaban [Eliquis] 2.5 mg PO HS 11/14/16 [History Confirmed 11/29/16 Last Taken 11/28/16 09:00 2.5 MG.] Carvedilol [Coreg] 6.25 mg PO BID 11/14/16 [History Confirmed 11/28/16 Last Taken 11/28/16 09:00 6.25 MG.] Clopidogrel Bisulfate [Plavix] 75 mg PO DAILY 11/14/16 [History Confirmed Last Taken 11/28/16 09:00 75 MG.] DULoxetine [Cymbalta] 60 mg PO DAILY 11/14/16 [History Confirmed 11/28/16 Last Taken 11/28/16 09:00 60 MG.] Gabapentin [Neurontin] 100 mg PO HS 11/14/16 [History Confirmed 11/29/16 Last Taken 11/28/16 09:00] Ipratropium/Albuterol [Duoneb] 3 ml NEB Q4 PRN 11/14/16 [History Confirmed 11/29 Last Taken Unknown] Levothyroxine [Synthroid] 112 mcg PO DAILY 11/14/16 [History Confirmed 11/28/16 Last Taken 11/28/16 07:30 112 MCG] Lisinopril [Zestril] 5 mg PO DAILY 11/14/16 [History Confirmed 11/28/16 Last Taken 11/28/16 09:00 5 MG.] Metolazone 5 mg PO DAILYP PRN 11/14/16 [History Confirmed 11/29/16 Last Taken 09:00 10 mg.] Na Phos,M-B/Na Phos,Di-Ba [Fleet Enema Extra] 230 ml RC PRN PRN 11/14/16 [ History Confirmed 11/28/16 Last Taken Unknown] Nitroglycerin 0.3 mg SL PRN PRN 11/14/16 [History Confirmed 11/28/16 Last Taken 04/24/16 0.3 mg.] traZODone HCL [Trazodone HCl] 50 mg PO QHS 11/14/16 [History Confirmed 11/28/16 Last Taken 11/27/16 21:00 50 mg.] 0.9 % Sodium Chloride [Saline Flush] 10 ml IV Q8 11/29/16 [History Confirmed Last Taken Unknown] Acetaminophen [Tylenol Extra Strength] 500 mg PO Q6HP PRN 11/29/16 [History Confirmed 11/29/16 Last Taken Unknown] Bacillus Coagulans [Probiotic] 1 tab PO BID 11/29/16 [History Confirmed Last Taken Unknown] Bisacodyl [Dulcolax] 10 mg MT PRN PRN 11/29/16 [History Confirmed 11/29/16 Last Taken Unknown] Cephalexin [Keflex] 500 mg PO TID 11/29/16 [History Confirmed 11/29/16 Last Taken Unknown] Container,Empty [Nasal [place] Bottle] 1 puff INTRANASAL Q2HP PRN 11/29/16 [ History Confirmed 11/29/16 Last Taken Unknown] Heparin Sodium,Porcine/Pf [Heparin Lock Flush 10 Units/ml] 2.5 ml IV Q8 [History Confirmed 11/29/16 Last Taken Unknown] Magnesium Hydroxide [Milk of Magnesia] 30 ml PO DAILYP PRN 11/29/16 [History Confirmed 11/29/16 Last Taken Unknown] Pantoprazole [Protonix] 40 mg PO HS 11/29/16 [History Confirmed 11/29/16 Last Taken Unknown] Spironolactone [Aldactone] 12.5 mg PO DAILY 11/29/16 [History Confirmed Last Taken Unknown] Spironolactone [Aldactone] 25 mg PO DAILY 11/29/16 [History Confirmed 11/29/16 Last Taken Unknown] Torsemide [Demadex] 20 mg PO DAILY 11/29/16 [History Confirmed 11/29/16 Last Taken Unknown] Medical - DS: Hosp Hospital course: Mr. Herrera is a 71 year old male Patient: Steve Herrera 71 y/o M admitted on 11/28/16 for Syncopal Episode with Acute Renal Failure. Interval history: [id number] admitted after experiencing syncopal episode at wound care clinic. History of ischemic cardiomyopathy with 35% EF and recurrent V. tach currently on defibrillator. Admitted to telemetry. Orthostatic stable. Acute renal failure plan 1.7. Started on crystalloids. Lower extremity nonhealing wound secondary to PVD with cellulitis on antibiotic coverage including vancomycin/Rocephin. case discussed with Dr. Heart. Patient would not need dressing until Friday. 11/29- improving creatinine down to 1.4. Patient feels a lot better. No overnight events except for intermittent bradycardia. Asymptomatic. Tolerating physical therapy/diet. patient is mostly wheelchair bound at baseline and has poor functional status. Anticipate discharge to be a home in 24 hours with outpatient vancomycin/Rocephin for one week for lower extremity cellulitis along with continued wound care instructions/follow-ups. November 30, 2016: the patient has been feeling better. He denies any significant dizziness, chest pain or palpitations. Vital signs have been relatively stable since admission, but we did hold his Coreg due to bradycardia on admission. here is some confusion about whether or not he has a pacemaker, an addition to his defibrillator. We see an occasional spike on an EKG, but there does not appear to be capture or pacing. the patient notes that at baseline he really cannot walk.he can stand to transfer, but that is about it. He had a Marquis catheterplaced just prior to admission, for complaints of gross hematuria. He believes he has some kind of follow-up for that on Friday or Friday. Today, he denies fever or chills, headaches or dizziness, sore throat or cough, chest pain or palpitations, shortness of breath, abdominal pain, nausea or vomiting diarrhea or constipation, dysuria. On exam, he is an elderly gentleman in no acute distress. neck shows no obvious JVD. Cardiac exam shows a slow, somewhat irregular, rhythm There are no obvious murmurs, rubs, gallops. Lungs: Have decreased breath sounds at the bases, but otherwise are clear, without rales, rhonchi, wheezes. Abdomen: Is obese, but soft and nontender, without obvious masses.bowel sounds are active. Marquis catheter is draining clear, yellow urine. Extremities: how minimal edema. Both feet are heavily bandaged with numerous underlying foot ulcers. Dressings are clean and dry. Neurologic: The patient is alert and oriented, calm and cooperative. assessment and plan: #1. Syncopal episode. The patient has known underlying V. tach, and may have had an episode of this. AICD is in place. Telemetry has not shown any problems, other than mild bradycardia. -It is unclear if he has a pacemaker. 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 Cardiac. -Because of bradycardia and syncope, Coreg was held. This has been resumed at a dose of 3.125 mgtwice a day. Blood pressure and heart rate will need to be closely monitored.Again, he should have cardiology follow-up. - class III systolic heart failure-continue Coreg, Plavix lisinopril, spironolactone, torsemide, metolazone as needed. He is apparently also maintained on both Plavix and Eliquis, for A. fib and heart failure. -history of ventricular tachycardia, status post AICD placement. -referral toDr. Sorto of vascular surgery is recommended. 33. Acute renal failure on presentation likely due to overdiuresis. He was given IV fluids and creatinine is improving but is certainly at risk for recurrent CHF. #4. Skin. Patient has multiple non-healingl ower extremity ulcers, with associated cellulitis. He has known diabetes and peripheral vascular disease. He is followed by Dr. Heart of wound care. He will stay on antibiotics for another 7-10 days. These were changed from IV over to by mouth Cefdinir, per [facility] request. -He is due for a dressing change on Friday. 35. Peripheral neuropathy. Continue gabapentin. #6. Type 2 diabetes. Apparently diet controlled. #7. Hyperlipidemia. #8. Dysmetabolic syndrome. #9. Chronic lymphedema of lower extremities. #10. Hematuria. Marquis [facility]. Hematuria appears to have resolved. Marquis can probably be removed although my understanding is that he has a follow-up appointment with a physician in 2-3 days. 311. Infectious disease. The patient may have a brewing right lower lobe pneumonia, and also has infected foot ulcers. A PICC line was placedearlier in his course, but since he is being changed to oral antibiotics this will be discontinued, prior to transfer, at the request of the [facility]. this visit took approximately 40 minutes, to review patient records and test results interview and examine him reviewed plan of care with nursing staff, including contacting [facility] for [facility], and writing orders. Discharge diagnosis: yncope, possibly due toventricular tachycardia, and/ orbradycardia Secondary discharge diagnosis: lass III heart failure type 2 diabetes, nonhealing leg ulcers, atrial fibrillation, hypothyroidism Reason for admission: yncope - Time Spent with Patient Total time spent providing and/or coordinating discharge services: Greater than 30 minutes Medical - DS: Exam - Constitutional Vitals: Vital Signs Temp Pulse Resp BP Pulse Ox 11/30/16 04:00 98.2 F 65 16 139/54 94 11/30/16 00:00 97.4 F 66 16 113/47 95 11/29/16 20:00 98.1 F 69 18 120/49 92 11/29/16 16:00 97.6 F 55 L 18 126/50 98 11/29/16 12:00 97.6 F 58 L 18 119/45 95 Intake and Output 11/29/16 11/30/16 11/30/16 21:59 05:59 13:59 Intake Total 920 / 920 600 / 600 240 / 240 Output Total 1900 / 1900 1100 / 1100 Balance -980 / -980 -500 / -500 240 / 240 Intake: Oral 920 / 920 600 / 600 240 / 240 Output: Urine Catheter Amount 1900 / 1900 1100 / 1100 Other: Meal Breakfast Percent of Meal Consumed 100% Weight 252 lb Medical - DS: Data Labs on day of discharge: Labs from last 24 hours 11/30/16 11/30/16 04:58 04:58 WBC 7.8 RBC 3.09 L Hgb 10.2 L Hct 30.0 L MCV 97.0 MCH 32.9 MCHC 34.0 RDW 13.8 Plt Count 180 MPV 9.1 Total Counted 100 Seg Neutrophils % 67 Band Neutrophils % Not Reportable Lymphocytes % 7 L Monocytes % (Manual) 14 H Eosinophils % (Manual) 12 H Platelet Estimate Normal RBC Morphology Normal Sodium 138 Potassium 4.0 Chloride 98 Carbon Dioxide 26 Anion Gap 14.0 BUN 31 H Creatinine 1.3 H GFR Calculation 55 Glucose 106 H Uric Acid 9.9 H Calcium 8.6 Phosphorus 3.8 Magnesium 1.7 Total Bilirubin 0.5 Direct Bilirubin < 0.2 GGT 95 H AST 14 ALT 7 Alkaline Phosphatase 106 Lactate Dehydrogenase 139 Total Protein 7.0 Albumin 2.8 L Globulin 4.2 H Albumin/Globulin Ratio 0.7 L Triglycerides 56 intake and output since admission he is about 390 mL negative. lactic acid on admission was normal. BUN/creatinine on admission were elevated at 36and 1.7. This is improved today. albumin levels have been running low, and today is at 2.8 Globulin fraction runs high at 4.2 today. rinalysis on admission showed 100 mg of protein, 500leukocyte esterase, greater than 182 red blood cells, few bacteria. urine and blood cultures are negative so far. chest x-ray from today: Shows a right-sided PICC line in place. Focal infiltrate at the right costophrenic angle with small effusion possibly consistent with pneumonia. Cardiomegaly without CHF. eKG from November 28, 2016:Shows atrial fibrillation with a rate of 56 and slow R- wave progression. Rate is slower than in August, but there are no obvious acute ischemic changes enal ultrasound: Has mild renal cortical atrophy, but is otherwise negative. Medical - DS: A/P - Patient/Caregiver Discharge Instructions Activity: as per physical therapy, increase activity as tolerated Diet: Low Sodium (2gm), Cardiac, Consistent Carbohydrate Additional Instructions: Resume home diet as tolerated Activity as tolerated Follow up with Dr. Kennedy. Contact the office on Saturday 12/02 to schedule. Follow up with Dr. Garcia. Contact the office on Saturday 12/02 to schedule. Return to ER for nausea and/or vomiting, dizziness, chills, fever, uncontrollable pain, shortness of breath, unable to go to the bathroom, pain upon urination, discolored urine. Prescriptions: Carvedilol [Coreg] 3.125 mg PO BID #1 Cefdinir 300 mg PO Q12H #20 capsule - Follow up Plan Follow up with: Ozzy Heart MD [Physician] - 12/05/16 2:20 pm (Continue with previously scheduled appointment at [facility] with Daja Claderon. Dr. martínez Heart is out of the office this week.) Marcelo Garcia MD [Primary Care Provider] - Disposition: Xfer SNF Prognosis: Fair Rehab Potential: Fair I certify that the patient requires SNF services: Yes Overall status at discharge: patient is progressing back to baseline Medical - DS: Qual - VTE Deep Vein Thrombosis/Pulmonary Embolism Present on Admission: No
[2016-11-30] MEDS ORDERED: CARVEDILOL 3.125 MG TABLET PO SCH (17:30)
== END 2016-11-30 13:18 | DRG 308 ==
LOC: ED 12:25 → SUATTDRO 16:36 → ICU 16:36
PROVIDERS: ADMIT Internal Medicine; ATTEND Internal Medicine